=== PATIENT | female | born 1990 | race Caucasian/White ===

== ENCOUNTER → 2020-11-27 | Outpatient (CLI) | payer OTHER ==
--- NOTE | 2020-11-27 11:50 | RAD ---
EXAMINATION: CT ABDOMEN W/O CONTRAST CLINICAL HISTORY: Umbilical hernia TECHNIQUE: CT of the abdomen performed using standard technique, scanning from just above the dome of the diaphragm to the iliac crests following administration of intravenous contrast. CT Dose Reduction Employed: One or more of the following individualized dose reduction techniques wer e utilized for this examination: 1. Automated exposure control 2. Adjustment of the mA and/or kV ac cording to patient size 3. Use of iterative reconstruction technique. COMPARISON: None FINDINGS: Minimal left basilar curvilinear subsegmental atelectasis. Cholelithiasis with several stones in the region of the gallbladder neck. No evidence of acute cholec ystitis on limited CT evaluation. Liver, pancreas, spleen, adrenal glands, and kidneys unremarkable. Partially visualized small bowel and colon unremarkable. Normal appendix. Stomach distended with flui d and particulate matter. No abdominal aortic aneurysm. Several prominent but nonenlarged mesenteric lymph nodes in the right l ower quadrant measuring up to 7 mm in short axis, nonspecific. Moderately sized fat-containing supraumbilical midline ventral hernia. Hernia neck measures 3.3 x 2.7 cm (TRV x CC). No evidence of acute osseous abnormality. IMPRESSION: Moderate fat-containing supraumbilical hernia. Cholelithiasis without evidence of acute cholecystitis. Electronically signed by: Huy Murray DO (11/27/2020 11:48 AM) [id number]
== END ==
LOC: CT 09:36
PROVIDERS: ATTEND Physician Assistant Medical
DX: K42.9 Umbilical hernia without obstruction or gangrene (principal); K80.20 Calculus of gallbladder without cholecystitis without obstruction; J98.11 Atelectasis
CPT/HCPCS: 74150

== ENCOUNTER 2021-04-20 14:45 | Emergency (ER) | payer OTHER ==
[~2021-04-20] VITALS: Ht 162.6 cm; Wt 108.0 kg
[~2021-04-20 14:45] MED LIST: ALBU2.5V8 IH; MULT-647 PO
[2021-04-20 14:50] VITALS: BP 149/74
--- NOTE | 2021-04-20 15:41 | RAD ---
EXAM: XR EXAM OF ANKLE_LEFT 3V 04/20/2021 3:24 PM CLINICAL INDICATION: Fell off porch COMPARISON: None TECHNIQUE: 3 views of the right ankle FINDINGS: No acute fracture. Alignment is normal. Ankle mortise is symmetric and talar dome is intac t. There is soft tissue swelling, greatest laterally. IMPRESSION: No acute osseous abnormality. Lateral soft tissue swelling. Electronically signed by: Shana Ledezma MD (04/20/2021 3:38 PM) [id number]
[2021-04-20] MEDS ORDERED: HYDROcodone/APAP 5/325MG 1 TAB TABLET PO ONE (15:45)
--- NOTE | 2021-04-20 15:48 | PHYS DOC ---
Adult General Chief Complaint Chief Complaint: ANKLE PROBLEM HPI HPI Patient is a 30-year-old female presenting for left lateral ankle pain. Reports ambulating at home and " stepping in a hole or something" wrong suffering an inversion type ankle injury. She did not hear any pops or cracks but does admit focal pain without radiation to the left lateral portion of left malleolus, increased soft tissue swelling, and pain with weightbearing prompting her to come in for evaluation. She has not taken anything for the pain. Reports global decrease in range of motion due to pain but otherwise no major changes in motor or sensory or neuro function Review of Systems Review of Systems Fourteen body systems of review of systems have been reviewed. See HPI for pertinent positives and negative responses, other weiss all other systems are negative, non-pertinent or non-contributory Current Medications Current Medications Current Medications Medications (Trade) Dose Ordered Sig/Nena Start Time Stop Time Status Last Admin Dose Admin Acetaminophen/ Hydrocodone Bitart (Lortab 5/325) 1 tab 1X ONCE 04/20/21 15:45 04/20/21 15:46 04/20/21 15:42 1 TAB Allergies Allergies Allergies Coded Allergies Type Severity Reaction Last Updated Verified No Known Drug Allergies 12/14/20 No Physical Exam Physical Exam Constitutional: Well developed, well nourished, no acute distress, non-toxic a ppearance. HENT: Normocephalic, atraumatic, bilateral external ears normal, oropharynx moist, no oral exudates, nose normal. Eyes: PERRLA, EOMI, conjunctiva normal, no discharge. Neck: Normal range of motion, no tenderness, supple, no stridor. Cardiovascular: Heart rate regular per monitor Lungs & Thorax: No respiratory distress or accessory muscle use, bilateral chest rise Abdomen: Abdomen soft, non-tender, bowel sounds present in all quadrants, no guarding or rebound, nonacute abdomen. Skin: Warm, dry, no erythema, no rash. Back: No tenderness, no CVA tenderness. Extremities: No cyanosis, no clubbing, range of motion of left ankle decreased globally due to pain, there is trace soft tissue edema present to left lateral aspect of ankle with pain on palpation of ATF ligaments in addition to pain with direct pressure over left lateral malleolus, otherwise left knee, left lower leg and left foot unremarkable Neurologic: Alert and oriented X 3, grossly normal motor & sensory function, no focal deficits noted. Psychologic: Anxious affect and mood Current Patient Data Vital Signs Vital Signs Date Time Temp Pulse Resp B/P (MAP) Pulse Ox O2 Delivery O2 Flow Rate FiO2 04/20/21 15:42 20 Room Air EKG EKG [] Radiology/Procedures Radiology/Procedures EXAM: XR EXAM OF ANKLE_LEFT 3V 04/20/2021 3:24 PM CLINICAL INDICATION: Fell off porch COMPARISON: None TECHNIQUE: 3 views of the right ankle FINDINGS: No acute fracture. Alignment is normal. Ankle mortise is symmetric and talar dome is intact. There is soft tissue swelling, greatest laterally. IMPRESSION: No acute osseous abnormality. Lateral soft tissue swelling. Electronically signed by: Shana Ledezma MD (04/20/2021 3:38 PM) [id number] Heart Score C/O Chest Pain: No Risk Factors: Risk Factors: DM, Current or recent (<one month) smoker, HTN, HLP, family history of CAD, obesity. Risk Scores: Risk Factors: DM, Current or recent (<one month) smoker, HTN, HLP, family history of CAD, obesity. Course & Med Decision Making Course & Med Decision Making ABCs unremarkable. I disclosed entirety of ER findings and discussed most likely diagnosis of left ankle sprain/strain from classic inversion injury. Other diagnoses were discussed with patient such as fracture or other potential surgical diagnoses but all deemed less likely causes of patient's presentation. Plan of care discussed at length with need for close outpatient follow-up to review today's ER visit stressed. Strict return precautions were also discussed at length with good understanding verbalized by patient. Rodrigue wrap applied. Continued supportive care practices such as rice recommended. Patient voiced understanding and agreement with the plan. Patient knows to come back for repeat evaluation if concerning signs or symptoms present prior to outpatient follow- up. Hemodynamically stable, ambulatory and well-appearing at time of disposition. Dragon Disclaimer Dragon Disclaimer This electronic medical record was generated, in whole or in part, using a voice recognition dictation system. Departure Departure: Impression: Primary Impression: Left lateral ankle pain Disposition: HOME / SELF CARE / HOMELESS Condition: STABLE Referrals: KRISHNA DAILEY (PCP) Patient Instructions: Ankle Exercises, Generic-SportsMed, RICE - Routine Care for Injuries Additional Instructions: You were seen for musculoskeletal pain. You should return to the ED if you develop worsening pain, fever, numbness, tingling, weakness, or any other new or concerning symptoms. Your pain is most likely due to a muscle strain/sprain and should improve with ibuprofen and Tylenol for pain, stretching, and activity . If it does not improve you should follow up with a primary care doctor. HARVEY RUTLEDGE DO Apr 20, 2021 15:48
== END 2021-04-20 16:15 | disposition home or self-care (01) ==
LOC: ER 14:45
DX: M25.572 Pain in left ankle and joints of left foot (principal); R22.42 Localized swelling, mass and lump, left lower limb
CPT/HCPCS: 73610; 99283

== ENCOUNTER 2021-05-30 10:52 | Emergency (ER) | payer OTHER ==
[~2021-05-30] VITALS: Ht 162.6 cm; Wt 108.0 kg
[2021-05-30 10:52] VITALS: BP 153/84
[2021-05-30] MEDS ORDERED: NEOMY/BACITR/POLYMYXIN OINT PACKET. TP ONE (11:15)
--- NOTE | 2021-05-30 11:20 | PHYS DOC ---
Past History Past Surgical History: Other Additional Past Surgical Histo: eustacian tubes (COLE LINK APRN) Alcohol Use: None (COLE LINK APRN) General Adult EDM: Chief Complaint: WOUND CHECK HPI: HPI: Patient is a 30-year-old female who presents to the emergency department for a Band-Aid removal. Patient reports that she had her toenail removed yesterday to include foot surgery of [place] and they put Band-Aids on her right great toe and she could not remove them today to change them. Patient has no complaints,. (COLE LINK APRN) Review of Systems: Review of Systems: Musculoskeletal: See HPI Integument: See HPI Neurologic: Patient reports decreased sensation to her right great toe from anesthesia (COLE LINK APRN) Allergies: Allergies: Allergies Coded Allergies Type Severity Reaction Last Updated Verified No Known Drug Allergies 12/14/20 No (COLE LINK APRN) Physical Exam: PE: Constitutional: Well developed, well nourished, no acute distress, non-toxic appearance. [] HENT: Normocephalic, atraumatic Eyes: PERRL, EOMI, conjunctiva normal, no discharge. [] Neck: Normal range of motion, no stridor Cardiovascular: Normal peripheral perfusion Lungs & Thorax: Normal work of breathing, no tachypnea Abdomen: Soft and flat Skin: Warm, dry, no erythema, no rash, no signs of infection surrounding left great toe, wound bed appears moist, neuro intact to toe, rom intact to toe. [] Back: Normal range of motion Extremities: No tenderness, no cyanosis, no clubbing, ROM intact, no edema. [] Neurologic: Alert and oriented X 3, normal motor function, normal sensory function, no focal deficits noted. [] Psychologic: Affect normal, judgement normal, mood normal. [] (COLE LINK APRN) EKG: EKG: [] (COLE LINK APRN) Radiology/Procedures: Radiology/Procedures: [] (COLE LINK APRN) Heart Score: C/O Chest Pain: N/A Risk Factors: Risk Factors: DM, Current or recent (<one month) smoker, HTN, HLP, family history of CAD, obesity. Risk Scores: Score 0 - 3: 2.5% MACE over next 6 weeks - Discharge Home Score 4 - 6: 20.3% MACE over next 6 weeks - Admit for Clinical Observation Score 7 - 10: 72.7% MACE over next 6 weeks - Early Invasive Strategies (COLE LINK APRN) Course & Med Decision Making: Course & Med Decision Making Pertinent Labs and Imaging studies reviewed. (See chart for details) Patient presents to the emergency department for a Band-Aid removal. Saline was used to moisten Band-Aid and it was removed. Patient tolerated procedure. Nail bed appears intact there are no signs of infection. Triple antibiotic ointment placed and a nonadherent dressing placed. Patient advised to follow-up with the surgeon on Monday regarding her ER visit. She was advised to monitor for signs of infection. I discussed with patient all findings and diagnostic testing as well as the need to follow-up with PCP for further evaluation and treatment or return to the ER if any new or worsening symptoms. Strict return precautions were also discussed at length. Patient voiced understanding and agreement with the plan. Patient is hemodynamically stable at the time of disposition. (COLE LINK APRN) Course & Med Decision Making I was the Attending physician on the above date of service of this patient. This patient was evaluated, examined, treated, and dispositioned from the emergency department by the mid-level practitioner. Although I was working at the time , no assistance was requested. Electronically signed, Harvey Rutledge DO (HARVEY RUTLEDGE DO) Francisco Disclaimer: Francisco Disclaimer: This electronic medical record was generated, in whole or in part, using a voice recognition dictation system. (COLE LINK APRN) Departure Departure: Impression: Primary Impression: Dressing change Disposition: 01 HOME / SELF CARE / HOMELESS Condition: GOOD Referrals: KRISHNA DAILEY (PCP) Patient Instructions: Dressing Change Additional Instructions: You are seen in the emergency department for a bandage removal. You can apply Polysporin or bacitracin ointment on to your toe and keep a nonadherent bandage in place. Please follow the surgeon's instructions. Monitor for signs of infection which include redness, warmth, swelling or drainage. Follow-up with the neck band setter on Monday regarding your ER visit. Return to the emergency department if you have any new or worsening concerns. Experience any signs of infection, increased pain, decreased range of motion or decreased sensation to your toe. EMERGENCY DEPARTMENT GENERAL DISCHARGE INSTRUCTIONS Thank you for coming to [facility] (ED) today and trusting us with you care. We trust that you had a positivie experience in our Emergency Department. If you wish to speak to the department management, you may call the director at [phone]. YOUR FOLLOW UP INSTRUCTIONS ARE FOLLOWS: 1. Do you have a private Doctor? If you do not have a private doctor, please ask for a resource list of physicians or clinics that may be able to assist you with follow up care. 2. The Emergency Physician has interpreted your x-rays. The X-Ray specialist will also review them. If there is a change in the findings, you will be notified in 48 hours when at all possible. 3. A lab test or culture has been done, your results will be reviewed and you will be notified if you need a change in treatment. ADDITIONAL INSTRUCTIONS AND INFORMATION: 1. Your care today has been supervised by a physician who is specially trained in emergency care. Many problems require more than one evaluation for a complete diagnosis and treatment. We recommend that you schedule your follow up appointment as recommended to ensure complete treatment of you illness or injury. If you are unable to obtain follow up care and continue to have a problem, or if your condition worsens, we recommend that you return to the ED. 2. We are not able to safely determine your condition over the phone nor are we able to give sound medical advice over the phone. For these safety reasons, if you call for medical advice we will ask you to come to the ED for further evaluation. 3. If you have any questions regarding these discharge instructions please call the ED at [phone]. SAFETY INFORMATION: In the interest of safety, wellness, and injury prevention; we encourage you to wear your sealbelt, if you smoke; quite smoking, and we encourage family to use a protective helmet for bicycling and other sporting events that present an increased risk for head injury. IF YOUR SYMPTOMS WORSEN OR NEW SYMPTOMS DEVELOP, OR YOU HAVE CONCERNS ABOUT YOUR CONDITION; OR IF YOUR CONDITION WORSENS WHILE YOU ARE WAITING FOR YOUR FOLLOW UP APPOINTMENT; EITHER CONTACT YOUR PRIMARY CARE DOCTOR, THE PHYSICIAN WHOSE NAME AND NUMBER YOU WERE GIVEN, OR RETURN TO THE ED IMMEDIATELY. COLE LINK APRN May 30, 2021 11:20 HARVEY RUTLEDGE DO May 30, 2021 13:18
== END 2021-05-30 11:28 | disposition home or self-care (01) ==
LOC: ER 10:52
DX: Z48.00 Encounter for change or removal of nonsurgical wound dressing (principal)
CPT/HCPCS: 99282

== ENCOUNTER → 2021-06-30 | Outpatient (CLI) | payer OTHER ==
[2021-06-30 12:14] LABS: ALBUMIN 3.4 g/dL (3.4-5.0); DIRECT BILIRUBIN 0.1 mg/dL (0.0-0.2); TOTAL BILIRUBIN 0.1 mg/dL (0.2-1.0); TOTAL PROTEIN 7.5 g/dL (6.4-8.2)
== END ==
LOC: LAB 10:33
PROVIDERS: ATTEND Podiatrist
DX: R94.5 Abnormal results of liver function studies (principal)
CPT/HCPCS: 36415; 80076